=== PATIENT | male | born 1955 | race Caucasian/White ===

== ENCOUNTER 2016-06-13 08:22 | Inpatient (IN) | payer BC ==
[2016-06-01 15:40] VITALS: BMI 32.3
--- NOTE | 2016-06-12 12:27 | HP ---
DATE OF ADMISSION: 06/13/2016 Hernandez Pathak is a 60-year-old patient seen with symptomatic right hip osteoarthritis. After having treatment options discussed, he elected to proceed with right total hip arthroplasty. Consent was obtained. Medical clearance was provided by Dr. Brayden Renee. His past medical history is hypertension, hyperlipidemia, dll-[id number] diabetes. His past surgical history is abdominal surgery. DAILY MEDICATIONS: 1. Cozaar. 2. Lipitor. 3. Metformin. 4. Multivitamin. ALLERGIES: None. SOCIAL HISTORY: Patient denies current tobacco use. Physical evaluation of the right hip: There is limited range of motion with severe pain, positive hip impingement sign, diffuse tenderness about the hip girdle, right lower extremity is approximately a half inch shorter than the left. Straight leg raise is negative. His distal neurovascular exam is intact. Radiographs of the right hip reveal severe osteoarthritis. IMPRESSION: Right hip osteoarthritis. PLAN: Direct anterior approach right total hip arthroplasty.
[~2016-06-13 08:22] MED LIST: ACETAMINOPHEN TAB 500 MG TAB PO ONE; HYDROmorphone 1 MG/ML 1 ML SYRINGE IVP PRN; LIDOCAINE 1% 20 ML VIAL (10MG/ML) FOR IV START INTRADERMA PRN; MELOXICAM 7.5 MG TAB PO ONE; ONDANSETRON 4 MG/2 ML VIAL IVP ONE; TRANEXAMIC ACID 1,000 MG in SODIUM CHLORIDE 0.9% 100 ML IVPB ONE; ceFAZolin 2 GM in SODIUM CHLORIDE 0.9% 100 ML IVPB ONE
[2016-06-13 09:23] LABS: Glucose,Whole Blood 120 mg/dL (75-99)
[2016-06-13] MEDS: LACTATED RINGERS 1,000 ML IV SCH ×5 (09:25→23:05)
[2016-06-13] MEDS ORDERED: MIDAZOLAM 2 MG/2 ML VIAL ONE (10:13)
[2016-06-13] MEDS ORDERED: TRANEXAMIC ACID 1,000 MG/10 ML VIAL ONE (10:13)
[2016-06-13] MEDS ORDERED: fentaNYL (PF) 50 MCG/ML 2 ML AMP ONE (10:13)
[2016-06-13] MEDS ORDERED: diphenhydrAMINE 50 MG/ML 1 ML VIAL ONE (10:13)
[2016-06-13] MEDS ORDERED: SODIUM CHLORIDE 0.9% 100 ML BAG ONE (10:13)
[2016-06-13] MEDS ORDERED: PROPOFOL 10 MG/ML 20 ML VIAL IV ONE (10:13)
[2016-06-13] MEDS ORDERED: ceFAZolin 3,000 MG in SODIUM CHLORIDE 0.9% IRRIGATIO 3,000 ML IRRIGATION ONE (10:17)
[2016-06-13] MEDS: ROPIVACAINE 246.25 MG, EPINEPHrine 0.5 MG, KETOROLAC 30 MG, cloNIDine HCL/PF 80 MCG, WA... MISCELLANE ONE ×10 (10:51→12:02)
[2016-06-13] MEDS ORDERED: LACTATED RINGERS 1,000 ML IV ONE ×3 (11:00→12:32)
[2016-06-13] MEDS ORDERED: NALOXONE 0.4 MG/ML 1 ML VIAL IV PRN (12:26)
[2016-06-13] MEDS ORDERED: TEMAZEPAM 15 MG CAP PO PRN (12:26)
[2016-06-13] MEDS ORDERED: HYDROmorphone 1 MG/ML 1 ML SYRINGE IVP PRN ×3 (12:26)
[2016-06-13] MEDS ORDERED: ONDANSETRON 4 MG/2 ML VIAL IVP PRN (12:26)
[2016-06-13] MEDS ORDERED: HYDROcodone/APAP 7.5-325MG 1 EACH TAB PO PRN (12:26)
--- NOTE | 2016-06-13 12:26 | P.OP ---
Date of Procedure: 06/13/16 Preoperative Diagnosis: Right hip osteoarthritis Postoperative Diagnosis: Right hip osteoarthritis Procedure(s) Performed: Direct anterior right total hip arthroplasty Implants: 1. Depuy Corail cementless femoral stem K a size 14 standard collar 2. Depuy pinnacle 58 mm cementless acetabular shell 3. Depuy pinnacle cancellus bone screw 6.5 mm x 25 mm and 6.5 mm x 15 mm 4. Depuy pinnacle polyethylene acetabular liner neutral 36 mm ID - 58 mm OD 5. Biolox delta ceramic femoral head plus 5 - 36 mm Anesthesia: local, spinal Surgeon: Jorden Mcgraw Sanitary Engineer #1: Biju Conrad Estimated Blood Loss (ml): 650 Pathology: other (Femoral head) Condition: stable Disposition: PACU Indications for Procedure: 60-year-old patient seen with symptomatic right hip osteoarthritis. After having treatment options discussed, he elected to proceed with right total hip arthroplasty. Operative Findings: See description of procedure Description of Procedure: The patient was taken to the operative suite. Patient underwent a spinal anesthetic by the department of anesthesia. Patient was then transferred to the Jerome table. Patient was given preoperative IV antibiotics and TXA. Both lower extremities were placed in standard leg spars. The hip was then prepped and draped in the normal sterile orthopedic fashion. A standard anterior incision was made beginning 3 cm lateral and 1 cm distal to the ASIS extending 10 cm. Dissection was then carried down through the subcutaneous soft tissues down to the fascia overlying the tensor fascia latrell. An incision was now made through the fascia. Careful dissection was taken down exposing the tensor fascia latrell muscle. A Cobra retractor was now placed along the medial femoral neck and a second one along the lateral femoral neck. The venous circumflex vessels were now identified, cauterized and clipped. We identified the anterior hip capsule. An incision was made through the hip capsule along the lateral border. Tag sutures were then placed along the anterior capsule and lateral capsule. We then performed a capsulotomy. Retractors were now placed around the femoral neck itself. A Cobra retractor was now placed along the anterior acetabulum. Good exposure was now noted of the femoral head/neck complex. Residual labrum was debrided out. We placed the extremity into 3 turns of fine traction. We were then able to introduce a skid in between the femoral head and acetabulum. A placed a awl into the femoral head. We took 2 turns of traction off the extremity. Rotation was now released. The femoral head was then dislocated without difficulty. Additional releasing was performed of the capsule. The head was then reduced. All traction was released. A femoral neck cut was now made with a sagittal saw. It was completed with an osteotome at the lateral neck area. The femoral head was now removed without difficulty. There was advanced osteoarthritis noted of the femoral head and acetabulum. The extremity was now rotated to 60 of external rotation. It was locked in position. Residual labrum was now debrided out. Serial reaming was performed of the acetabulum. Once we reached the appropriate size and a trial was position and fit nicely. The appropriate size was now chosen opened and made available. The wound was irrigated with pulse lavage mechanical irrigation. It was introduced into the acetabulum without difficulty. The C-arm/fluoroscopy was now brought into the operative field. We made sure we had a true AP pelvic view. We now under direct C-arm/ fluoroscopy introduced into the acetabular component with appropriate version and inclination. It was well seated and stable. The C-arm was pulled back. An appropriate liner was introduced and clicked into position. It was felt to be stable. At this point retractors were removed. The extremity was now placed into 125 external rotation with no traction. The leg was now dropped to the ground and adducted. Appropriate retractors were now positioned along the proximal femur. We also placed our femoral look into position. Additional capsular releasing was performed to gain access to the proximal femur. We now used a box osteotome. A canal finder was now utilized. Serial broaching was now performed until we reached the appropriate size with good overall rotational stability. Appropriate calcar planing was performed. A trial head/ neck was placed into position. The hip was now reduced. The C-arm/fluoroscopy was brought back into the operative field. A spot film was obtained of the nonoperative hip. A spot film was obtained of the trial components. Overlays were performed, we noted good overall alignment and positioning for determining leg length. The C-arm/fluoroscopy was pulled back. Retractors were repositioned and the hip was dislocated. The leg was again taken down to the ground and adducted. Appropriate retractors were repositioned as well as the femoral hook. All trial components were removed. The femoral implant was opened along with the femoral head. The wound was irrigated with pulse lavage mechanical irrigation. The deep soft tissues were infiltrated local analgesic. The femoral implant was introduced with good purchase and fixation noted. The femoral head was introduced with good positioning and fixation noted. Retractors were now removed. The hip was now reduced. There appeared be good positioning of the hip. C-arm brought in confirming alignment as well as obtaining a spot film to document procedure. A second gram of TXA was given. Bipolar cautery had been utilized intermittently through the procedure for hemostasis. The wound was irrigated copiously with pulse lavage mechanical irrigation. The fascia was repaired with Vicryl suture. The subcutaneous soft tissues were repaired in layers with Vicryl suture. The skin was approximated with pernio/Dermabond. Sterile dressings were applied. Patient was then awakened, transferred to a bed and taken to recovery in stable condition. Biju SANTANA assisted with the procedure.
--- NOTE | 2016-06-13 13:03 | FL ---
EXAMINATION TYPE: FL guidance operating room, XR Hip Limited RT DATE OF EXAM: 06/13/2016 12:18 PM CLINICAL HISTORY: Right hip replacement TECHNIQUE: Fluoroscopy. Intraoperative limited views right hip. COMPARISON: None. FINDINGS: Fluoroscopic guidance was provided during right hip replacement procedure performed by Dr. Mcgraw. A total of 41 seconds of fluoroscopic time was utilized during the procedure and one spo t intraoperative image is acquired. Single image acquired shows metallic hardware from total hip arthroplasty that appears grossly satisf actory in position. IMPRESSION: As Above.
[2016-06-13 13:04] LABS: Glucose,Whole Blood 141 mg/dL (75-99)
[2016-06-13] MEDS: traMADol 50 MG TAB PO SCH ×3 (15:01→20:52)
[2016-06-13] MEDS: HYDROcodone/APAP 7.5-325MG 1 EACH TAB PO PRN ×2 (16:49→22:18)
[2016-06-13] MEDS: ceFAZolin 2 GM in SODIUM CHLORIDE 0.9% 100 ML IVPB SCH ×2 (16:49→23:00)
[2016-06-13] MEDS: metFORMIN 500 MG TAB PO SCH (20:52)
[2016-06-13] MEDS ORDERED: SENNOSIDES-DOCUSATE SODIUM 1 EACH TAB PO SCH (21:00)
[2016-06-13] MEDS: hydrOXYzine PAMOATE 25 MG CAP PO PRN (22:18)
[2016-06-14 01:46] VITALS: PULSE 87
[2016-06-14] MEDS: hydrOXYzine PAMOATE 25 MG CAP PO PRN (05:21)
[2016-06-14] MEDS: HYDROcodone/APAP 7.5-325MG 1 EACH TAB PO PRN (05:22)
--- NOTE | 2016-06-14 07:21 | CONS ---
DATE OF CONSULTATION: 06/13/2016 REASON FOR CONSULTATION: Medical management requested by Dr. Mcgraw. CONSULTATION: This is a pleasant 60-year-old patient of Dr. Renee. Chronic stable medical conditions include hyperlipidemia, hypertension. Patient has undergone a right total hip arthroplasty. Post procedure sitting up in a chair. Did tolerate his dinner. No chest pain or shortness of breath, nausea or vomiting. Denies any cardiac history. REVIEW OF SYSTEMS: CONSTITUTIONAL: None. HEENT: None. RESPIRATORY: None. CARDIOVASCULAR: None. GASTROINTESTINAL: None. GENITOURINARY: None. MUSCULOSKELETAL: Pain in the joints. DERMATOLOGICAL: None. HEMATOLOGICAL: None. LYMPHATIC: None. PSYCHIATRY: None. NEUROLOGICAL: None. Past medical history of hyperlipidemia, hypertension, osteoarthritis, colon cancer. PAST SURGICAL HISTORY: Bowel resection, right total hip arthroplasty. SOCIAL HISTORY: . Does not smoke or drink alcohol. FAMILY HISTORY: Reviewed, noncontributory to presentation. HOME MEDICATIONS: 1. Glucophage 500 mg p.o. b.i.d. 2. Cozaar 100 mg p.o. daily. 3. Advil 200 mg q.6 p.r.n. 4. Lipitor 40 mg p.o. daily. 5. Aspirin 325 mg p.o. daily p.r.n. ALLERGIES: None. On examination, temperature 97.9, pulse 73, respirations 16, blood pressure 102/53, pulse ox 96% on room air. GENERAL APPEARANCE: Well built, BMI of 32.3, sitting on a chair, comfortable. EYES: Pupils equal. Conjunctivae normal. HEENT: External appearance of nose and ears normal. Oral cavity normal. NECK: JVD not raised. Mass not palpable. RESPIRATORY: Effort normal. Lungs are clear. CARDIOVASCULAR: First and second sounds normal. No edema. ABDOMEN: Soft, nontender. Liver and spleen not palpable. LYMPHATIC: No lymph nodes palpable in neck or axillae. PSYCHIATRY: Alert and oriented x3. Mood and affect normal. NEUROLOGICAL: Pupils equal. Cranial nerves grossly intact. Power and sensation grossly intact. INVESTIGATIONS: Accu-Cheks are noted. ASSESSMENT: 1. Right total hip arthroplasty. 2. Hyperlipidemia. 3. Essential hypertension. 4. Obesity, body mass index 32.3. 5. Osteoarthritis, primary. 6. History of colon cancer. PLAN: Patient's home medications will be resumed. For DVT prophylaxis, patient getting Lovenox. Care was discussed with the patient. Thank you, Dr. Mcgraw.
[2016-06-14 07:46] LABS: Basophils % (A) 0 %; CH 33.3; CHCM 34.3; Eosinophils # (A) 0.1 k/uL (0-0.7); Eosinophils % (A) 1 %; HCT 36.6 % (39.0-53.0); HDW 2.72; HGB 12.2 gm/dL (13.0-17.5); Luc % (Auto) 2; Lymphocytes # (A) 1.5 k/uL (1.0-4.8); Lymphocytes % (A) 17 %; MCH 32.3 pg (25.0-35.0); MCHC 33.2 g/dL (31.0-37.0); MCV 97.4 fL (80.0-100.0); Mean Platelet Volume 6.8; Monocytes # (A) 0.7 k/uL (0-1.0); Monocytes % (A) 8 %; Neutrophils # (A) 6.3 k/uL (1.3-7.7); Neutrophils % (A) 72 %; RBC 3.76 m/uL (4.30-5.90); RDW 12.8 % (11.5-15.5); WBC 8.7 k/uL (3.8-10.6); WBC (Perox) 8.95
[2016-06-14] MEDS: traMADol 50 MG TAB PO SCH ×2 (08:37→12:18)
[2016-06-14] MEDS: metFORMIN 500 MG TAB PO SCH (08:38)
[2016-06-14 08:48] VITALS: BP 132/64; RESP 15; TEMP 97.8
[2016-06-14] MEDS ORDERED: ATORVASTATIN 40 MG TAB PO SCH (09:00)
[2016-06-14] MEDS ORDERED: LOSARTAN 50 MG TAB PO SCH (09:00)
[2016-06-14] MEDS ORDERED: FAMOTIDINE 20 MG TAB PO SCH (09:00)
[2016-06-14] MEDS ORDERED: MELOXICAM 7.5 MG TAB PO SCH (09:00)
[2016-06-14] MEDS ORDERED: ENOXAPARIN 40 MG/0.4 ML SYRINGE SQ SCH (09:00)
[2016-06-14] MEDS ORDERED: MULTIVITAMINS, THERA 1 EACH TAB PO SCH (12:00)
--- NOTE | 2016-06-14 13:59 | P.PN ---
Subjective Principal diagnosis: Status post right total hip arthroplasty Patient is seen on multiple occasions today. He is doing very well, no acute complaints. He is ambulating well. He is urinating with no difficulty. Pain is well-controlled with oral medication. Denies chest pain, shortness of breath , fever or chills. Objective - Vital Signs Vital signs: Vital Signs Temp 97.8 F 06/14/16 07:00 Pulse 87 06/14/16 07:00 Resp 15 06/14/16 07:00 BP 132/64 06/14/16 07:00 Pulse Ox 95 06/14/16 07:00 Intake & Output 06/13/16 06/14/16 06/14/16 18:59 06:59 18:59 Intake Total 6500 3340 Output Total 1350 600 850 Balance 5150 -600 2490 Intake: IV 6200 Intake, IV Titration 400 Amount ceFAZolin 2 gm In Sodium 400 Chloride 0.9% 100 ml @ 100 mls/hr IVPB Q8HR VIKTORIA Rx#:[id number] Oral 300 2940 Output: Urine 700 600 850 Uretheral (Burch) 600 200 Estimated Blood Loss 650 Other: Voiding Method Indwelling Catheter Indwelling Catheter Indwelling Catheter - Exam Right lower extremity: Incision is clean, dry and intact. Minimal ecchymosis present on the medial and lateral aspects of the incision. Calf is soft, no tenderness with palpation. Plantar flexion, dorsiflexion, EHL, FHL intact. Sensory exam to light touch throughout the lower extremities intact. Dorsal pedis pulses 2+. - Labs CBC & Chem 7: 06/14/16 07:10 Labs: Abnormal Lab Results - Last 24 Hours (Table) 06/14/16 Range/Units 07:10 RBC 3.76 L (4.30-5.90) m/uL Hgb 12.2 L (13.0-17.5) gm/dL Hct 36.6 L (39.0-53.0) % Assessment and Plan Plan: Assessment: 1. Postop day #1 status post right total hip arthroplasty Plan: 1. Pain control, will be discharged home on oral medication 2. Home therapy and nursing after discharge 3. Daily dressing changes/ice and elevate, wound care was discussed 4. GI and DVT prophylaxis, aspirin 325 mg twice a day for 30 days 5. Medical recommendations 6. Discharge planning: Patient will be discharged home today Time with Patient: Less than 30
--- NOTE | 2016-06-14 14:00 | P.DS ---
Providers Date of admission: 06/13/16 08:47 Expected date of discharge: 06/14/16 Attending physician: Jorden Mcgraw Consults: 06/13/16 12:26 Consult Physician Routine Consulting Provider: Jayesh Neves Consult Reason/Comments: Medical management Do you want consulting provider notified?: Yes Primary care physician: [facility] Course: Date of admission: 06/13/2016 Date of discharge: 06/14/2016 Admission diagnosis: Status post right total hip arthroplasty Discharge diagnosis: Same Attending physician: Dr. Mcgraw Surgical procedures: Right total hip arthroplasty Brief history: Patient is a 60-year-old male with a history of progressive primary right hip osteoarthritis. At this point patient has failed conservative treatment measures and has opted to proceed with a elective right total hip arthroplasty. Hospital course: Details of patient's surgery can be found in operative report. Patient tolerated the procedure well and was subsequently transported to orthopedic floor. Patient's orthopeidc and medical care was provided daily. Patient had daily laboratory tests performed for evaluation of overall blood counts. Patient had daily physical therapy to include strengthening range of motion as well as education with walker ambulation. Patient was treated with Lovenox for their postoperative DVT prophylaxis during their inpatient stay. Patient was noted to have a relatively uneventful postoperative course. Patient reported satisfactory pain control with oral pain medications by postoperative day 0. Patient showed satisfactory progress with physical therapy. Patient moved steadily through the program and had no difficulty meeting the goals by postoperative day 1. Given patient's otherwise satisfactory course and having met physical therapy goals, plan is to discharge patient home on postoperative day 1. Discharge condition/disposition: Patient will be discharged home in stable condition. Discharge medications: Instructions are given on resumption of patient's normal daily medications per primary care recommendation, in addition patient will be prescribed [place] 7.5 mg/325 mg, tramadol 50 mg, Colace 100 mg, Pepcid 20 mg, aspirin 325 mg. Discharge instructions: 1. Wound care and infection precautions, keep incision dry and covered while showering, no lotions, creams, moisturizers. No soaking, tubs, pools, hottubs. Do not scrub over the incision. 2. Weight-bear as tolerated with walker / cane until follow-up. 3. Ice and elevate when necessary. Do not exceed 20 minutes per hour with ice pack. 4. Utilize compression sleeve until seen at first follow up appointment. 5. Visiting nursing care. 6. Home physical therapy. 7. Pain meds and anticoagulants per prescription. 8. Pain medication has potential to cause constipation. Increase oral fluid and fiber intake. Contact primary care provider if you have not had a bowel movement within 48 hours after discharge 9. No anti-inflammatory medication until discussed at first post operative visit, this including Motrin, Aleve, Mobic, Diclofenac. 10. Follow up in office at 2 weeks postop with Gentry Conrad PA-C 11. Follow up with your primary care doctor 7-10 days after discharge. 12. Contact [facility] with any questions, . Procedures: Right total hip arthroplasty Patient Condition at Discharge: Good Plan - Discharge Summary New Discharge Prescriptions: Aspirin 325 mg PO BID #60 tab Docusate [Colace] 100 mg PO DAILY #20 capsule Famotidine [Pepcid] 20 mg PO DAILY #20 tablet HYDROcodone/APAP 7.5-325MG [[place] 7.5] 1 - 2 each PO Q6HR PRN #40 tab PRN Reason: Pain traMADol HCl [Ultram] 50 mg PO Q6H PRN #40 tab PRN Reason: Pain Discharge Medication List Atorvastatin [Lipitor] 40 mg PO DAILY 06/01/16 [History] Losartan Potassium [Cozaar] 100 mg PO DAILY 06/01/16 [History] metFORMIN HCL [Glucophage] 500 mg PO BID 06/01/16 [History] Aspirin 325 mg PO BID #60 tab 06/14/16 [Rx] Docusate [Colace] 100 mg PO DAILY #20 capsule 06/14/16 [Rx] Famotidine [Pepcid] 20 mg PO DAILY #20 tablet 06/14/16 [Rx] HYDROcodone/APAP 7.5-325MG [[place] 7.5] 1 - 2 each PO Q6HR PRN #40 tab 06/14/16 [ Rx] traMADol HCl [Ultram] 50 mg PO Q6H PRN #40 tab 06/14/16 [Rx] Follow up Appointment(s)/Referral(s): Biju Conrad PAC [PHYSICIAN FLESHING MACHINE OPERATOR] - 1 Week Activity/Diet/Wound Care/Special Instructions: Home Care - [facility] - [phone] Walker - has at home Orthopedic Discharge Instructions: 1. Wound care and infection precautions, keep incision dry and covered while showering, no lotions, creams, moisturizers. No soaking, pools, hot tubs. Do not scrub over incision. 2. Weight-bear as tolerated with walker / cane until follow-up. 3. Ice and elevate when necessary. Do not exceed 20 minutes per hour with ice pack. 4. Utilize compression sleeve until seen at first follow up appointment. 5. Visiting nursing care. 6. Home physical therapy. 7. Pain meds and anticoagulants per prescription. 8. Pain medication has potential to cause constipation. Increase oral fluid and fiber intake. Contact primary care provider if you have not had a bowel movement within 48 hours after discharge. 9. No anti-inflammatory medication until discussed at first post operative visit, this including Motrin, Aleve, Mobic, Diclofenac. 10. Follow up in office at 2 weeks postop with Gentry Conrad PA-C 11. Follow up with your primary care doctor 7-10 days after discharge. 12. Contact [facility] with any questions, . Discharge Disposition: HOME WITH HOME HEALTH SERVICES
--- NOTE | 2016-06-14 18:58 | PN ---
DATE OF SERVICE: 06/14/2016 PRESENTING COMPLAINT: Right hip surgery. INTERVAL HISTORY: Patient is status post right hip surgery. I saw this morning, doing much better, comfortable, tolerating his diet. He has been up with physical therapy. Review systems done for constitutional, cardiovascular, GI, pulmonary; relevant findings as above. Current medications are reviewed. On examination, temperature 97.8, pulse 87, respiratory rate 15, blood pressure 132/64, pulse ox 95% on room air. GENERAL APPEARANCE: Sitting up, comfortable. EYES: Pupils equal. Conjunctivae normal. NECK: JVD not raised. Mass not palpable. RESPIRATORY: Effort normal. LUNGS: Clear. CARDIOVASCULAR: First and second sounds normal. No edema. ABDOMEN: Soft, nontender. Liver and spleen not palpable. PSYCHIATRY: Alert and oriented times three. Mood and affect normal. INVESTIGATIONS: White count 8.7, hemoglobin 12.2. ASSESSMENT: 1. Right total hip arthroplasty. 2. Hyperlipidemia. 3. Essential hypertension. 4. Obesity, body mass index of 32.3. 5. Osteoarthritis primary. 6. History of colon cancer. PLAN: Patient is doing well. Continue current medication and treatment plan. Will follow. Thank you, Dr. Mcgraw.
== END 2016-06-14 14:39 | disposition home health service (06) | DRG 470 ==
LOC: 2ORMAIN 08:47 → 3SUR 12:28
PROVIDERS: ADMIT Orthopaedic Surgery; ATTEND Orthopaedic Surgery
PROC: 0SR904A Replacement of Right Hip Joint with Ceramic on Polyethylene Synthetic Substitute, Uncemented, Open Approach (ICD-10-PCS; principal; 2016-06-13 10:20)
DX: M16.11 Unilateral primary osteoarthritis, right hip (principal); I10 Essential (primary) hypertension; E11.9 Type 2 diabetes mellitus without complications; E78.5 Hyperlipidemia, unspecified; Z79.82 Long term (current) use of aspirin; Z85.038 Personal history of other malignant neoplasm of large intestine; Z79.84 Long term (current) use of oral hypoglycemic drugs; Z79.899 Other long term (current) drug therapy
CPT/HCPCS: 73501; 85025; 86850; 86900; 86901; 88300

== ENCOUNTER → 2020-06-08 | Outpatient (CLI) | payer OTHER ==
[2020-06-08 08:08] LABS: Basophils # (A) 0.1 k/uL (0-0.2); Basophils % (A) 1 %; Eosinophils # (A) 0.1 k/uL (0-0.7); Eosinophils % (A) 2 %; HCT 46.4 % (39.0-53.0); Lymphocytes # (A) 2.5 k/uL (1.0-4.8); Lymphocytes % (A) 35 %; MCH 32.6 pg (25.0-35.0); MCHC 34.4 g/dL (31.0-37.0); MCV 94.7 fL (80.0-100.0); Mean Platelet Volume 7.4; Monocytes # (A) 0.5 k/uL (0-1.0); Monocytes % (A) 7 %; Neutrophils # (A) 3.8 k/uL (1.3-7.7); Neutrophils % (A) 54 %; Platelet Count 259 k/uL (150-450); RBC 4.91 m/uL (4.30-5.90); RDW 12.7 % (11.5-15.5)
[2020-06-08 08:12] LABS: Appearance,Urine Clear (Clear); Bilirubin,Urine Negative (Negative); Blood,Urine Negative (Negative); Color,Urine Yellow; Glucose,Urine (UA) Negative (Negative); Ketones,Urine Negative (Negative); Leukocyte Esterase,Urine Negative (Negative); Nitrite,Urine Negative (Negative); Protein,Urine Negative (Negative); Specific Gravity,Urine 1.021 (1.001-1.035); Urobilinogen,Urine <2.0 mg/dL (<2.0)
[2020-06-08 08:16] LABS: Partial Thromboplastin Time 23.9 sec (22.0-30.0); Prothrombin Time 10.3 sec (9.0-12.0)
[2020-06-08 08:23] LABS: African American GFR (CKD) >90 (>60 ml/min/1.73 sqM); Anion Gap 7 mmol/L; Blood Urea Nitrogen 16 mg/dL (9-20); Calcium 9.9 mg/dL (8.4-10.2); Carbon Dioxide 28 mmol/L (22-30); Chloride 106 mmol/L (98-107); Glucose 157 mg/dL (74-99); Non-African American GFR(CKD) >90 (>60 ml/min/1.73 sqM); Potassium 4.4 mmol/L (3.5-5.1); Sodium 141 mmol/L (137-145)
== END | disposition home or self-care (01) ==
LOC: LABPAT 07:25
PROVIDERS: ATTEND Orthopaedic Surgery
DX: Z01.818 Encounter for other preprocedural examination (principal); M16.12 Unilateral primary osteoarthritis, left hip; Z01.812 Encounter for preprocedural laboratory examination
CPT/HCPCS: 36415; 80048; 81003; 85025; 85610; 85730; 87070

== ENCOUNTER 2020-06-10 06:26 | Day surgery (SDC) | payer BC, OTHER ==
[2020-06-03 14:15] VITALS: BMI 31.4
--- NOTE | 2020-06-09 14:00 | HP ---
HISTORY AND PHYSICAL DATE OF SURGERY: 06/10/2020 Hernandez Pathak is a 64-year-old gentleman seen with symptomatic left hip osteoarthritis. We discussed options for treatment. He elected to proceed with left total hip arthroplasty. Consent regarding procedure was obtained. Medical clearance was provider by Dr. Brayden Renee. PAST MEDICAL HISTORY: Hypertension, hyperlipidemia, ust-rnluwvq-[id number] diabetes. PAST SURGICAL HISTORY: Right total hip arthroplasty, colon resection. DAILY MEDICATIONS: 1. Cozaar. 2. Ibuprofen. 3. Lipitor. 4. Metformin. 5. Glipizide. 6. Januvia. ALLERGIES: None. SOCIAL HISTORY: Denies current tobacco use. PHYSICAL EXAMINATION: Physical evaluation of left hip: Very limited range of motion with severe pain. Positive hip impingement sign. Straight leg raise negative. He has diffuse tenderness about the hip girdle. Distal neurovascular exam is intact. Radiographs of the left hip reveal severe osteoarthritic changes. IMPRESSION: 1. Left hip osteoarthritis. 2. Hypertension. 3. Hyperlipidemia. 4. Tpm-qzqfbam-zbjtmlzlc diabetes. PLAN: Direct anterior left total hip arthroplasty. MMODL / IJN: [id number] /
[~2020-06-10 06:26] MED LIST changes: -ACETAMINOPHEN TAB 500 MG TAB PO ONE; +ACETAMINOPHEN TAB 500 MG TAB PO PRN; +DEXAMETHASONE SOD PHOSPHATE 4 MG/ML 1 ML VIAL IV ONE; +HYDROmorphone 0.5 MG/0.5 ML SYRINGE IVP PRN; -HYDROmorphone 1 MG/ML 1 ML SYRINGE IVP PRN; -LIDOCAINE 1% 20 ML VIAL (10MG/ML) FOR IV START INTRADERMA PRN; -MELOXICAM 7.5 MG TAB PO ONE; +MELOXICAM 7.5 MG TAB PO PRN; +ROPIVACAINE 246.25 MG, EPINEPHrine 0.5 MG, KETOROLAC 30 MG, cloNIDine HCL/PF 80 MCG, WA... MISCELLANE PRN; -TRANEXAMIC ACID 1,000 MG in SODIUM CHLORIDE 0.9% 100 ML IVPB ONE; +TRANEXAMIC ACID 1,000 MG in SODIUM CHLORIDE 0.9% 100 ML IVPB PRN; -ceFAZolin 2 GM in SODIUM CHLORIDE 0.9% 100 ML IVPB ONE
[2020-06-10] MEDS ORDERED: LIDOCAINE 1% (10MG/ML) FOR IV START INTRADERMA ONE (07:14)
[2020-06-10] MEDS: LACTATED RINGERS 1,000 ML IV SCH ×2 (07:15→13:43)
[2020-06-10] MEDS ORDERED: SUCCINYLCHOLINE CHLORIDE 100 MG/5 ML SYR IV ONE (07:25)
[2020-06-10] MEDS ORDERED: NEOSTIGMINE 1 MG/ML 10 ML VIAL ONE (07:25)
[2020-06-10] MEDS ORDERED: TRANEXAMIC ACID 1,000 MG/10 ML VIAL ONE (07:25)
[2020-06-10] MEDS ORDERED: SODIUM CHLORIDE 0.9% 100 ML BAG ONE (07:25)
[2020-06-10] MEDS ORDERED: MIDAZOLAM 2 MG/2 ML VIAL ONE (07:25)
[2020-06-10] MEDS ORDERED: ROCURONIUM 10 MG/ML (10 ML VIAL) IV ONE (07:25)
[2020-06-10] MEDS ORDERED: HYDROmorphone (PF) 1 MG/ML ONE (07:25)
[2020-06-10] MEDS ORDERED: PROPOFOL 10 MG/ML 20 ML VIAL IV ONE (07:25)
[2020-06-10] MEDS ORDERED: fentaNYL (PF) 50 MCG/ML 2 ML AMP ONE (07:25)
[2020-06-10] MEDS ORDERED: LIDOCAINE 1% INJ 10MG/ML (20 ML MDV) ONE (07:25)
[2020-06-10] MEDS ORDERED: GLYCOPYRROLATE 0.2 MG/ML 2 ML VIAL ONE (07:25)
[2020-06-10 07:27] LABS: Glucose,Whole Blood 204 mg/dL (75-99)
[2020-06-10] MEDS ORDERED: ceFAZolin 1,000 MG in SODIUM CHLORIDE 0.9% 1,000 ML IRRIGATION ONE (08:04)
[2020-06-10] MEDS: ROPIVACAINE/EPI/CLONIDINE/KET 50 ML SYRINGE MISCELLANE PRN ×2 (08:05→08:45)
--- NOTE | 2020-06-10 09:11 | XR ---
EXAMINATION TYPE: XR Hip Limited LT DATE OF EXAM: 06/10/2020 COMPARISON: NONE HISTORY: Postop TECHNIQUE: One view submitted. FINDINGS: There is postsurgical change in near anatomic alignment. There is soft tissue edema and emphysema. IMPRESSION: 1. Postoperative change. Appears in near-anatomic alignment.
--- NOTE | 2020-06-10 09:12 | FL ---
EXAMINATION TYPE: FL guidance operating room DATE OF EXAM: 06/10/2020 HISTORY: Fluoroscopy time 27 seconds of fluoroscopy provided. IMPRESSION: 1. Fluoroscopy time.
[2020-06-10] MEDS ORDERED: NALOXONE 0.4 MG/ML 1 ML VIAL IV PRN (09:22)
[2020-06-10] MEDS ORDERED: HYDROmorphone 0.2 MG/1 ML SYRINGE IVP PRN (09:22)
[2020-06-10] MEDS ORDERED: HYDROmorphone 1 MG/ML 1 ML SYRINGE IVP PRN (09:22)
[2020-06-10] MEDS ORDERED: HYDROmorphone 0.5 MG/0.5 ML SYRINGE IVP PRN (09:22)
[2020-06-10] MEDS ORDERED: HYDROcodone/APAP 5-325MG 1 EACH TAB PO PRN ×2 (09:22)
[2020-06-10] MEDS ORDERED: ONDANSETRON 4 MG/2 ML VIAL IVP PRN (09:22)
[2020-06-10] MEDS ORDERED: LACTATED RINGERS 1,000 ML IV ONE (09:22)
--- NOTE | 2020-06-10 09:22 | P.OP ---
Date of Procedure: 06/10/20 Preoperative Diagnosis: Left hip osteoarthritis Postoperative Diagnosis: Left hip osteoarthritis Procedure(s) Performed: Direct anterior left total hip arthroplasty Implants: 1. Depuy Corail standard collar KA size 13 press-fit femoral stem 2. Depuy pinnacle 54 mm press-fit acetabular shell 3. Depuy pinnacle polyethylene acetabular liner neutral 36 mm ID 54 mm OD 4. Biolox delta ceramic femoral head +5 36 mm Anesthesia: YUNIOR, local Surgeon: Jorden Mcgraw Guillotine Trimmer #1: Biju Conrad Estimated Blood Loss (ml): 120 Pathology: other (Femoral head) Condition: stable Disposition: PACU Indications for Procedure: Patient seen with symptomatic left hip osteoarthritis. After treatment options were discussed, he elected to proceed with total hip arthroplasty. Operative Findings: See description of procedure Description of Procedure: The patient was taken to the operative suite. Patient underwent a general anesthetic by the department of anesthesia. Patient was then transferred to the [place] table. Patient was given preoperative IV antibiotics and TXA. Both lower extremities were placed in standard leg spars. The hip was then prepped and draped in the normal sterile orthopedic fashion. A standard anterior incision was made beginning 3 cm lateral and 1 cm distal to the ASIS extending 10 cm. Dissection was then carried down through the subcutaneous soft tissues down to the fascia overlying the tensor fascia latrell. An incision was now made through the fascia. Careful dissection was taken down exposing the tensor fascia latrell muscle. A Cobra retractor was now placed along the medial femoral neck and a second one along the lateral femoral neck. The venous circumflex vessels were now identified, cauterized and clipped. We identified the anterior hip capsule. An incision was made through the hip capsule along the lateral border. I performed a partial anterior capsulectomy. Retractors were now placed around the femoral neck itself. A femoral neck cut was now made with a sagittal saw. It was completed with an osteotome at the lateral neck area. The femoral head was now removed without difficulty. The extremity was now rotated to 45 of external rotation. It was locked in position. Residual labrum was now debrided out. Serial reaming was performed of the acetabulum while Gentry SANTANA assisted holding an anterior retractor for exposure. Once we reached the appropriate size and a trial was position and fit nicely. The appropriate size was now chosen opened and made available. It was introduced into the acetabulum without difficulty. The C-arm/fluoroscopy was now brought into the operative field. We made sure we had a true AP pelvic view. We now under direct C- arm/fluoroscopy introduced into the acetabular component with appropriate version and inclination. I held the cup in appropriate position well Gentry SANTANA used a mallet to seat the acetabular component. I noted the component now to be well seated and stable. Acetabular cup introduce her was removed. The C-arm was pulled back. An appropriate liner was introduced and clicked into position. It was felt to be stable. At this point retractors were removed. The extremity was now placed into 120 external rotation with no traction. The leg was now dropped to the ground and adducted. Appropriate retractors were now positioned along the proximal femur. We also placed our femoral look into position. Additional capsular releasing was performed to gain access to the proximal femur. We now used a box osteotome. A canal finder was now utilized. Serial broaching was now performed with the assistance of Gentry SANTANA tapping the broaches down with a mallet while held the broach in appropriate rotation and position. This was done until we reached the appropriate size with good overall rotational stability. Appropriate calcar planing was performed. A trial head/neck was placed into position. The hip was now reduced. The C-arm/ fluoroscopy was brought back into the operative field. An AP pelvis was obtained documenting reasonable leg length alignment. The trial components appear to be well-positioned and adequate sizing. The C-arm/fluoroscopy was pulled back. Retractors were repositioned and the hip was dislocated. The leg was again taken down to the ground and adducted. Appropriate retractors were repositioned as well as the femoral hook. All trial components were removed. The femoral implant was opened along with the femoral head. The femoral implant was introduced on the appropriate handle into our pre-broached area. I held the component position well Gentry SANTANA used a mallet to seat the femoral component. The femoral component was now noted to be well seated and stable.. The femoral head was introduced with good positioning and fixation noted. Retractors were now removed. The hip was now reduced. There appeared be good positioning of the hip confirmed on intraoperative fluoroscopy. Spot films were obtained to document this. A second gram of TXA was given. The deep and superficial soft tissues were infiltrated with local analgesic. Bipolar cautery had been utilized intermittently through the procedure for hemostasis. The wound was irrigated copiously with pulse lavage mechanical irrigation. The fascia was repaired with Vicryl suture. The subcutaneous soft tissues were repa ired in layers with Vicryl suture. The skin was approximated with pernio/Dermabond. Sterile dressings were applied. Patient was then awakened, transferred to a bed and taken to recovery in stable condition. Gentry SANTANA assisted with the complex procedure.
[2020-06-10 09:39] VITALS: TEMP 97.9
[2020-06-10 09:45] LABS: Glucose,Whole Blood 301 mg/dL (75-99)
[2020-06-10] MEDS ORDERED: INSULIN ASPART (NovoLOG) 100 UNIT/ML VIAL SQ ONE (09:53)
[2020-06-10 10:10] LABS: Glucose,Whole Blood 287 mg/dL (75-99)
[2020-06-10] MEDS ORDERED: HYDROcodone/APAP 7.5-325MG 1 EACH TAB ONE (11:30)
[2020-06-10] MEDS ORDERED: HYDROcodone/APAP 7.5-325MG 1 EACH TAB PO ONE (11:31)
[2020-06-10 11:50] LABS: Glucose,Whole Blood 322 mg/dL (75-99)
[2020-06-10 13:06] VITALS: BP 100/88; PULSE 78; RESP 18
== END 2020-06-10 14:01 | disposition home health service (06) ==
LOC: OR 06:26 → EDSTATUS 07:30 → OR 14:01
PROVIDERS: ATTEND Orthopaedic Surgery
DX: M16.12 Unilateral primary osteoarthritis, left hip (principal); I10 Essential (primary) hypertension; E78.5 Hyperlipidemia, unspecified; E11.9 Type 2 diabetes mellitus without complications; Z79.1 Long term (current) use of non-steroidal anti-inflammatories (NSAID); Z79.84 Long term (current) use of oral hypoglycemic drugs; Z79.899 Other long term (current) drug therapy; Z90.49 Acquired absence of other specified parts of digestive tract; Z85.038 Personal history of other malignant neoplasm of large intestine
CPT/HCPCS: 97110; 97161; 88300; 73501; 27130; C1776; J2250; J1100; J2710; J0690 ×2; J2405; J2001; J3010; J1170; J0330; J2704; 86850; 86900; 86901

== ENCOUNTER → 2024-06-24 | Outpatient (CLI) | payer MEDICARE ==
--- NOTE | 2024-06-25 10:11 | CA ---
Transthoracic Echo Report Name: Hernandez Pathak Age: 68 Gender: M : 1955 Exam Date: 06/24/2024 16:01 Exam Location: [facility] Ht (in): 66 Wt (lb): 189 Ordering Physician: Pindea Michel DO Attending/Referring Phys: Digital Media Director Shanika Dumont RDCS Procedure CPT: Indications: R01.1 Cardiac murmur,specified Cardiac Hx: Technical Quality: Fair Contrast 1: Total Dose (mL): Contrast 2: Total Dose (mL): MEASUREMENTS (Male / Female) Normal Values 2D ECHO LV Diastolic Diameter PLAX 3.2 cm 4.2 - 5.9 / 3.9 - 5.3 cm LV Systolic Diameter PLAX 2.4 cm IVS Diastolic Thickness 1.3 cm 0.6 - 1.0 / 0.6 - 0.9 cm LVPW Diastolic Thickness 1.6 cm 0.6 - 1.0 / 0.6 - 0.9 cm LV Relative Wall Thickness 0.9 RV Internal Dim ED PLAX 2.5 cm LVOT Diameter 1.7 cm LA Systolic Diameter LX 4.1 cm 3.0 - 4.0 / 2.7 - 3.8 cm LV Diastolic Volume MOD BP 64.1 cm??? 67 - 155 / 56 - 104 cm??? LV Systolic Volume MOD BP 14.7 cm??? 22 - 58 / 19 - 49 cm??? LV Ejection Fraction MOD BP 77.1 % >= 55 % LV Cardiac Index MOD BP 1708.7 cm???/min???m??? LV Diastolic Volume MOD 4C 68.3 cm??? LV Systolic Volume MOD 4C 15.8 cm??? LV Ejection Fraction MOD 4C 76.9 % LV Cardiac Index MOD 4C 1814.7 cm???/min???m??? LV Diastolic Length 4C 7.9 cm LV Systolic Length 4C 5.5 cm LV Diastolic Volume MOD 2C 56.9 cm??? LV Systolic Volume MOD 2C 12.5 cm??? LV Ejection Fraction MOD 2C 78.0 % LV Cardiac Index MOD 2C 1534.2 cm???/min???m??? LV Diastolic Length 2C 7.5 cm LV Systolic Length 2C 4.9 cm M-MODE Aortic Root Diameter MM 3.4 cm LA Systolic Diameter MM 4.1 cm LA Ao Ratio MM 1.2 AV Cusp Separation MM 1.1 cm DOPPLER AV Peak Velocity 227.0 cm/s AV Peak Gradient 20.6 mmHg AV Mean Velocity 158.2 cm/s AV Mean Gradient 11.3 mmHg AV Velocity Time Integral 44.4 cm LVOT Peak Velocity 164.1 cm/s LVOT Peak Gradient 10.8 mmHg LVOT Velocity Time Integral 35.4 cm LVOT Stroke Volume 84.7 cm??? LVOT Stroke Volume Index 43.4 ml/m??? LVOT Cardiac Index 2928.6 cm???/min???m??? AV Area Cont Eq vti 1.9 cm??? AV Area Cont Eq pk 1.7 cm??? Mitral E Point Velocity 107.9 cm/s Mitral A Point Velocity 133.3 cm/s Mitral E to A Ratio 0.8 MV Deceleration Time 275.7 ms MV E' Velocity 6.9 cm/s Mitral E to MV E' Ratio 15.6 TR Peak Velocity 138.4 cm/s TR Peak Gradient 7.7 mmHg FINDINGS Left Ventricle Left ventricular ejection fraction is estimated at 55-60 %. Mildly increased septal wall thickness. Normal Left ventricular size, wall thickness, systolic function with no obvious regional wall motion abnormalities. Normal Left ventricular diastolic filling pattern. Left ventricular cavity size normal. Right Ventricle Normal right ventricular size and function. Right ventricular systolic pressure within normal limits. Right Atrium Normal right atrial size. Left Atrium Mildly increased left atrial diameter. Mitral Valve Structurally normal mitral valve. Trace mitral regurgitation. No mitral stenosis. Aortic Valve Mild aortic stenosis with a peak gradient of 23 mmHg and a mean gradient of 14 mmHg. No aortic regurgitation. Tricuspid Valve Structurally normal tricuspid valve. Trace tricuspid regurgitation. No tricuspid stenosis. Pulmonic Valve Structurally normal pulmonic valve. No pulmonic stenosis. Trace pulmonic regurgitation. Pericardium No pericardial or pleural effusion. Aorta Normal size aortic root and proximal ascending aorta. CONCLUSIONS Normal LV size and systolic function with mild concentric LVH. Mildly enlarged left atrium. Calcified aortic valve with restriction, mild stenosis mean gradient 14 mmHg. Trivial mitral and tricuspid regurgitation. No pulmonary hypertension. No pericardial effusion Previewed by: Dr. Chery Flores MD (Electronically Signed) Final Date: 25 June 2024 10:11
== END | disposition home or self-care (01) ==
LOC: RADECHMAIN 15:37
PROVIDERS: ATTEND Family Medicine
DX: R01.1 Cardiac murmur, unspecified (principal); I08.1 Rheumatic disorders of both mitral and tricuspid valves; I35.8 Other nonrheumatic aortic valve disorders
CPT/HCPCS: 93306